=== PATIENT | female | born 1960 | race Two or more races ===

== ENCOUNTER 2018-09-15 09:41 | Emergency (ER) | payer OTHER ==
[~2018-09-15] VITALS: Ht 157.5 cm; Wt 63.5 kg
[~2018-09-15 09:41] MED LIST: ATENOLOL50 MG PO
[2018-09-15] MEDS ORDERED: COZAAR50 MG (10:18)
== END 2018-09-15 11:08 | disposition home or self-care (01) ==
LOC: ER 09:41
DX: H66.92 Otitis media, unspecified, left ear (principal); H92.22 Otorrhagia, left ear

== ENCOUNTER 2020-09-29 16:21 | Emergency (ER) | payer OTHER ==
[~2020-09-29] VITALS: Ht 157.5 cm; Wt 64.4 kg
[~2020-09-29 16:21] MED LIST changes: +COZAAR50 MG
[2020-09-29] MEDS ORDERED: KETO10TA2 PO (20:42)
== END 2020-09-29 21:04 | disposition home or self-care (01) ==
LOC: ER 16:21
DX: N20.2 Calculus of kidney with calculus of ureter (principal); R10.32 Left lower quadrant pain; R10.12 Left upper quadrant pain
CPT/HCPCS: 74176; 74177; Q9965

== ENCOUNTER 2021-01-29 12:05 | Emergency (ER) | payer OTHER ==
[~2021-01-29] VITALS: Ht 160 cm; Wt 59.9 kg
[~2021-01-29 12:05] MED LIST changes: +KETO10TA2 PO
== END 2021-01-29 17:34 | disposition home or self-care (01) ==
LOC: ER 12:05
DX: K57.90 Diverticulosis of intestine, part unspecified, without perforation or abscess without bleeding (principal); R10.32 Left lower quadrant pain